=== PATIENT | female | born 1935 | race Caucasian/White ===

== ENCOUNTER 2016-04-29 22:36 | Emergency (ER) | payer MEDICARE, OTHER ==
[~2016-04-29] VITALS: Ht 167.6 cm; Wt 90.7 kg
[~2016-04-29 22:36] MED LIST: ACET-2605 PO; B12/1TAB3 PO; CALC500T51 PO; CARV12.52 PO; ERGO50003 PO; FENO90CA PO; FOLI1TAB16 PO; GLIM4TAB2 PO; MELO-270 PO; METF500T4 PO; OLME1TAB3 PO; OMEP40CA37 PO; SIMV40TA5 PO; SOLI10TA PO
--- NOTE | 2016-04-29 22:50 | NUR ---
PT BB RA FROM HOME FOR WOUND CHECK. PT AOX3 MONGOLIAN SPEAKING, FAMILY AT BEDSIDE FOR TRANSLATION. RR EVEN AND UNLABORED. NO SOB NOTED. NAD NOTED. NO NDV AT THIS TIME. PT GOWNED AND PLACED ON MONITOR WAITING FOR MD MCKEON.
--- NOTE | 2016-04-29 23:17 | NUR ---
DR. BLACKWELL AT BEDSIDE FOR EVAL.
[2016-04-29] MEDS ORDERED: GELATIN SPONGE,ABSORBABLE 1 SPONGE SPONGE TP ONE ×2 (23:21→23:30)
[2016-04-30] MEDS ORDERED: GELATIN SPONGE,ABSORBABLE 1 SPONGE SPONGE TP ONE
--- NOTE | 2016-04-30 01:30 | NUR ---
Patient discharged to home in stable condition. Written and verbal after care instructions given. Patient verbalizes understanding of instruction. ambulatory with a steady gait. pt w/c per pt and family request.
[2016-04-30 01:31] VITALS: BP 137/74
== END 2016-04-30 01:32 | disposition home or self-care (01) ==
LOC: ER 22:39
DX: S31.103D Unspecified open wound of abdominal wall, right lower quadrant without penetration into peritoneal cavity, subsequent encounter (principal); E11.9 Type 2 diabetes mellitus without complications; I10 Essential (primary) hypertension; Z85.828 Personal history of other malignant neoplasm of skin
CPT/HCPCS: A4606; Z7610